=== PATIENT | female | born 1950 | race Caucasian/White ===

== ENCOUNTER → 2017-10-13 | Outpatient (CLI) | payer OTHER | END | disposition home or self-care (01) | LOC: PCVCIMAG 12:53 | DX: I10 Essential (primary) hypertension (principal); E78.5 Hyperlipidemia, unspecified; R06.00 Dyspnea, unspecified; E83.59 Other disorders of calcium metabolism | CPT/HCPCS: 93325; 93351 ==

== ENCOUNTER → 2019-04-01 | Outpatient (CLI) | payer BC, OTHER ==
--- NOTE | 2019-04-01 11:42 | PCVCIMAG ---
APPROVED REPORT Study performed: 04/01/2019 10:48:23 Exam: Stress Echocardiogram Indication: CAD , Elevated CA Score Patient Location: Echo lab Stress Nurse: Jenn Hernandez RN Status: routine Ht: 5 ft 4 in HR: 67 bpm BP: 158/102 mmHg Rhythm: NSR Medical History Medical History: Diabetes, Hyperlipidemia Procedure The patient underwent an Exercise Stress Test using the Terrance Protocol. Blood pressure, heart rate, and EKG were monitored. An Echocardiogram was performed by environmental sampling technician in four stages in quad fashion. At peak stress, four selected images were obtained and placed side by side with resting images for comparison. Stress Test Details Stress Test: Exercise stress testing was performed using a Terrance protocol. HR Resting HR: 67 bpmMax Heart Rate (APMHR): 154 bpm Max HR Achieved: 139 bpmTarget HR (85% APMHR): 130 bpm % of APMHR: 90 Recovery HR: 80 bpm HR response to stress: Normal HR response to stress BP Resting BP: 158/102 mmHg Max BP: 180/118 mmHg Recovery BP: 160/100 mmHg BP response to stress: Normal blood pressure response to stress. ECG Resting ECG: Sinus Rhythm Stress ECG: Sinus Rhythm Recovery ECG: Sinus Rhythm Clinical Reason for Termination: Maximal effort Exercise duration: 4 min 24 sec Highest Stage Achieved: Stage 2: 2.5 mph at 12% grade. Exercise capacity: 7.00 METs Overall Exercise Capacity for Age: Poor Stress ECG Conclusion ECG: Non-ischemic Clinical: Non-ischemic Pre-Stress Echo The resting Echocardiogram showed normal left ventricular contractility with an estimated Ejection Fraction of about 50-55%. Normal wall motion in all segments on baseline images. Post-Stress Echo The stress Echocardiogram showed normal left ventricular contractility with an estimated Ejection Fraction of about 60-65%. Normal augmentation of wall motion in all segments on post stress images. Clinical No clinical or ECG evidence for ischemia. Conclusion Clinical Response: Non-ischemic Exercise Capacity: Below Average Stress ECG Response: Non-ischemic Stress Echo Images: Non-ischemic The left ventricle is normal in size and wall thickness in both the rest and stress images. Other Information Study Quality: Adequate <Conclusion> The left ventricle is normal in size and wall thickness in both the rest and stress images.
== END | disposition home or self-care (01) ==
LOC: PCVCIMAG 10:12
PROVIDERS: ATTEND Internal Medicine Cardiovascular Disease
DX: I25.10 Atherosclerotic heart disease of native coronary artery without angina pectoris (principal); R93.1 Abnormal findings on diagnostic imaging of heart and coronary circulation; I10 Essential (primary) hypertension; E78.00 Pure hypercholesterolemia, unspecified; E11.9 Type 2 diabetes mellitus without complications; E78.5 Hyperlipidemia, unspecified
CPT/HCPCS: 93325; 93351